=== PATIENT | female | born 1960 | race African-American/Black ===

== ENCOUNTER 2021-06-07 11:46 | Emergency (ER) | payer MEDICAID ==
[~2021-06-07] VITALS: Ht 165.1 cm; Wt 65.0 kg
[2021-06-07 12:42] LABS: BASOPHILS % 0.3 % (0.0-2.0); EOSINOPHILS % 0.7 % (0.0-5.0); HEMATOCRIT. 37.2 % (36.0-48.0); HEMOGLOBIN. 12.1 g/dL (12.0-16.0); LYMPHOCYTES % 13.4 % (20.0-50.0); MEAN CORPUSCULAR HEMOGLOBIN 29.3 pg (28.0-32.0); MEAN CORPUSCULAR VOLUME 89.9 fL (81.0-99.0); MEAN PLATELET VOLUME 7.1 fl (7.4-10.4); MONOCYTES % 5.2 % (2.0-8.0); NEUTROPHILS % 80.4 % (40.0-76.0); PLATELET 227 x1000/uL (130-400); RED BLOOD CELL COUNT 4.14 mill/uL (4.2-5.4); RED CELL DISTRIBUTION WIDTH 13.9 % (11.6-14.6)
[2021-06-07 12:46] LABS: CHLORIDE 114 mEq/L (98-107)
[2021-06-07 18:52] VITALS: BP 133/67
== END 2021-06-07 18:58 | disposition home or self-care (01) ==
LOC: ER 11:59
DX: R55 Syncope and collapse (principal); R42 Dizziness and giddiness; E78.00 Pure hypercholesterolemia, unspecified
CPT/HCPCS: 36415; 80053; 83880; 84484; 85025; 99283